=== PATIENT | female | born 1985 | race Caucasian/White ===

== ENCOUNTER 2019-01-17 11:50 | Emergency (ER) | payer BC ==
[~2019-01-17] VITALS: Ht 162.6 cm; Wt 79.3 kg
[2019-01-17 12:14] VITALS: BP 127/86
== END 2019-01-17 16:09 | disposition home or self-care (01) ==
LOC: ED 14:12
DX: R10.33 Periumbilical pain (principal); R10.31 Right lower quadrant pain; R11.0 Nausea; E03.9 Hypothyroidism, unspecified
CPT/HCPCS: 36415; 74177; 80053; 81003; 84703; 85025; 96374; 96375; 99284; J2270; J2405